=== PATIENT | female | born 1985 | race African-American/Black ===

== ENCOUNTER 2018-09-25 08:39 | Emergency (ER) | payer OTHER ==
[~2018-09-25] VITALS: Ht 167.6 cm; Wt 68.0 kg
[2018-09-25] MEDS ORDERED: KETOROLAC 60MG/2ML VIAL IM ONE (09:00)
[2018-09-25] MEDS ORDERED: ACETAMINOPHEN 325MG TABLET PO ONE (09:15)
[2018-09-25 10:55] VITALS: BP 108/52
== END 2018-09-25 11:00 | disposition home or self-care (01) ==
LOC: ER 08:39
DX: O26.899 Other specified pregnancy related conditions, unspecified trimester (principal); M25.532 Pain in left wrist; Z98.890 Other specified postprocedural states; Z88.8 Allergy status to other drugs, medicaments and biological substances; W01.0XXA Fall on same level from slipping, tripping and stumbling without subsequent striking against object, initial encounter; Y93.89 Activity, other specified; Y92.89 Other specified places as the place of occurrence of the external cause; Y99.8 Other external cause status
CPT/HCPCS: 29125; 73130; 81025; 99283; Z7610; A4565; J1885

== ENCOUNTER 2018-12-14 10:14 | Emergency (ER) | payer OTHER ==
[~2018-12-14] VITALS: Ht 167.6 cm; Wt 73.0 kg
[2018-12-14] MEDS ORDERED: KETOROLAC 30MG/ML VIAL IV ONE (11:30)
[2018-12-14 11:47] LABS: BASOPHILS % 0.3 % (0.0-2.0); EOSINOPHILS % 0.5 % (0.0-5.0); HEMATOCRIT. 38.7 % (36.0-48.0); HEMOGLOBIN. 12.9 g/dL (12.0-16.0); LYMPHOCYTES % 23.9 % (20.0-50.0); MEAN CORPUSCULAR HEMOGLOBIN 28.7 pg (28.0-32.0); MEAN CORPUSCULAR VOLUME 85.8 fL (81.0-99.0); MEAN PLATELET VOLUME 7.9 fl (7.4-10.4); NEUTROPHILS % 68.3 % (40.0-76.0); PLATELET 252 x1000/uL (130-400); RED BLOOD CELL COUNT 4.51 mill/uL (4.2-5.4); RED CELL DISTRIBUTION WIDTH 13.3 % (11.6-14.6)
[2018-12-14 11:51] LABS: CHLORIDE 108 mEq/L (98-107)
[2018-12-14 12:15] LABS: B-HCG QUANTITATIVE 4993 mIU/mL (<3)
[2018-12-14] MEDS ORDERED: METHOTREXATE SODIUM/PF 50 MG/2 ML VIAL IM ONE (14:45)
[2018-12-14 17:00] VITALS: BP 118/57
== END 2018-12-14 17:58 | disposition home or self-care (01) ==
LOC: ER 10:14
DX: O00.90 Unspecified ectopic pregnancy without intrauterine pregnancy (principal); O99.330 Smoking (tobacco) complicating pregnancy, unspecified trimester; F17.200 Nicotine dependence, unspecified, uncomplicated; Z3A.01 Less than 8 weeks gestation of pregnancy
CPT/HCPCS: 36415; 76801; 76817; 80053; 81025; 84702; 85025; 86850; 86900; 86901; 96372; 96374; 99284; J1885; J9260